=== PATIENT | female | born 1960 | race Caucasian/White ===

== ENCOUNTER 2019-07-22 12:11 | Emergency (ER) | payer OTHER ==
--- NOTE | 2019-07-22 13:05 | ED ---
Hypertension - HPI Summary HPI Summary: Pt is a 59 y/o F presenting to the ED with a chief complaint of HTN. She states she was feeling lightheaded all morning, denies headaches. Patient repots she was diagnosed w transient global amnesia 2 months ago (2/2 stress) she was told to monitor her BP. She took it today at work, it was around 158/98, then someone from [employer] asked her a bunch of questions and it made her BP go up even further because she became anxious. She reports high levels of stress and some heart flutter every now and then. She denies CP. Takes amlodipine for BP - History of Current Complaint Chief Complaint: EDHypertension Stated Complaint: HYPERTENTION,GENERAL ILLNESS PER EMS Time Seen by Provider: 07/22/19 12:40 Hx Obtained From: Patient Onset/Duration: Started Hours Ago, Still Present Timing: Constant, Lasting Hours Reported Blood Pressure Prior To Arrival: over 200 systolic in EMS per pt Alleviating Factor(s): Nothing Associated Signs & Symptoms: Anxiety/Stress, Dizziness - Allergies/Home Medications Allergies/Adverse Reactions: Allergies Allergy/AdvReac Type Severity Reaction Status Date / Time No Known Allergies Allergy Verified 07/22/19 12:30 PMH/Surg Hx/FS Hx/Imm Hx Previously Healthy: Yes Cardiovascular History: Reports: Hx Hypertension GI History: Reports: Hx Gastroesophageal Reflux Disease Psychiatric History: Reports: Hx Anxiety Infectious Disease History: No Infectious Disease History: Denies: Traveled Outside the [place] in Last 30 Days - Family History Known Family History: Negative: Renal Disease - Social History Lives: With Family Alcohol Use: None Hx Substance Use: No Substance Use Type: Reports: None Hx Tobacco Use: No Smoking Status (MU): Never Smoked Tobacco Review of Systems Positive: Other - HTN Negative: Chest Pain Positive: Anxious All Other Systems Reviewed And Are Negative: Yes Physical Exam - Summary Physical Exam Summary: Constitutional: Well-developed, Well-nourished, Alert. (-) Distressed Skin: Warm, Dry HENT: Normocephalic; Atraumatic Eyes: Conjunctiva normal Neck: Musculoskeletal ROM normal neck. (-) JVD, (-) Stridor, (-) Nuchal rigidity Cardio: Rhythm regular, rate normal, Heart sounds normal; Intact distal pulses; Radial pulses are 2+ and symmetric. (-) Murmur Pulmonary/Chest wall: Effort normal. (-) Respiratory distress, (-) Wheezes, (-) Rales Abd: Soft, (-) tenderness, (-) Distension, (-) Guarding, (-) Rebound Musculoskeletal: (-) Edema Lymph: (-) Cervical adenopathy Neuro: Alert, Oriented x3 Psych: Mood and affect anxious Triage Information Reviewed: Yes Vital Signs On Initial Exam: Initial Vitals Temp Pulse Resp BP Pulse Ox 98.5 F 61 16 183/101 98 07/22/19 12:28 07/22/19 12:28 07/22/19 12:28 07/22/19 12:28 07/22/19 12:28 Vital Signs Reviewed: Yes Procedures - Sedation Patient Received Moderate/Deep Sedation with Procedure: No Diagnostics - Vital Signs Vital Signs Temp Pulse Resp BP Pulse Ox 07/22/19 12:28 98.5 F 61 16 183/101 98 - Laboratory Result Diagrams: 07/22/19 13:19 07/22/19 13:19 Lab Statement: Any lab studies that have been ordered have been reviewed, and results considered in the medical decision making process. - EKG 1311 Cardiac Rate: Bradycardia - 57bpm EKG Rhythm: Sinus Bradycardia ST Segment: Normal Ectopy: None Summary of EKG Findings: An EKG at 1311 reveals sinus bradycardia at 57bpm, nml axis, nml intervals, and T-wave inversions in v1 and lead III. No STEMI. No acute changes. ED physician has reviewed and interpreted this EKG. Re-Evaluation - Re-Evaluation First Eval Re-Evaluation Time: 13:45 Change: Improved - Discussed w patient results and labs. Discussed with her we saw some slight abnormalities (TWI) on EKG told to follow up with PCP, patient denies chest pain at this time and we have no prior comparable. Patient's blood pressure 160 Hypertension Course/Dx - Course Course Of Treatment: 59-year-old female with a history of hypertension and anxiety presents with elevated blood pressure. -Based on my eval today, no evidence of end organ damage from hypertension. Suspect elevated blood pressure could be secondary to stress. -chemistry wnl,no JOS noted, no chest pain/sob, no VARNER, neuro exam non-focal. Recommendations for BP management: - The pt likely suffers from essential hypertension. -In the absence of a hypertensive emergency, which the pt does not have, there is no indication to aggressively treat her elevated blood pressure, even when it approaches the systolic ~180 range. -The patient needs terminal superintendent management of her blood pressure. -acutely, the pt may still have an elevated pressure, but over time the medication will take effect. - Patient took home dose of amlodipine - Diagnoses Provider Diagnoses: HTN (hypertension), Lightheadedness Discharge ED - Sign-Out/Discharge Documenting (check all that apply): Patient Departure - Discharge Plan Condition: Stable Disposition: HOME Patient Education Materials: Chronic Hypertension (ED), Lightheadedness (ED) Referrals: Care [facility] [Outside] Additional Instructions: You were seen in the emergency department for high blood pressure. Your labs did not show any abnormalities. If any studies were not completed at the time of discharge you will be called with the relevant results. Please follow up with your primary care doctor in next 2-3 days and return to emergency department for worsening pain, chest pain, passing out, or concerning symptoms. It was a pleasure taking care of you today. - Billing Disposition and Condition Condition: STABLE Disposition: Home - Attestation Statements Document Initiated by Juan Manuelibe: Yes Documenting Scribe: Flaquita Rose Provider For Whom Dorian is Documenting (Include Credential): Triston Holly MD. Scribe Attestation: Flaquita Jones, scrdanyed for Triston Holly MD. on 07/22/19 at 1405. Scribe Documentation Reviewed: Yes Provider Attestation: The documentation as recorded by the Flaquita hare accurately reflects the service I personally performed and the decisions made by Triston greer MD. Status of Scribe Document: Viewed
[2019-07-22 13:28] LABS: ABS Basophils 0.1 10^3/ul (0-0.2); ABS Eosinophils 0.7 10^3/ul (0-0.6); ABS Monocytes 0.7 10^3/ul (0-0.8); ABS Neutrophils 5.4 10^3/ul (1.5-7.7); Eosinophil % 8.3 %; Hematocrit 42 % (35-47); Hemoglobin 14.8 g/dL (12.0-16.0); Lymphocyte % 22.6 %; Mean Corpuscular HGB Conc 35 g/dL (31-36); Mean Corpuscular Hemoglobin 33 pg (27-31); Mean Corpuscular Volume 93 fL (80-97); Nucleated Red Blood Cells % 0.1; Platelet Count 448 10^3/uL (150-450); Red Blood Count 4.56 10^6 /uL (3.70-4.87); Red Cell Distribution Width 13 % (10-15); White Blood Count 8.8 10^3/uL (3.5-10.8)
[2019-07-22 13:48] LABS: Albumin 4.3 g/dL (3.2-5.2); Albumin/Globulin Ratio 1.6 (1-3); BUN/Creatinine Ratio 17.2 (8-20); Calcium 9.2 mg/dL (8.6-10.3); EGFR African American 80.1 (>60); EGFR Non-African American 66.2 (>60); Globulin 2.7 g/dL (2-4); Total Bilirubin 0.4 mg/dL (0.2-1.0)
[2019-07-22 14:21] VITALS: BP 174/101
== END 2019-07-22 14:19 | disposition home or self-care (01) ==
LOC: ED 12:11
DX: I10 Essential (primary) hypertension (principal); K21.9 Gastro-esophageal reflux disease without esophagitis; F41.9 Anxiety disorder, unspecified; Z79.899 Other long term (current) drug therapy
CPT/HCPCS: 36415; 80053; 84484; 85025; 93005; 99282